=== PATIENT | female | born 1955 | race Caucasian/White ===

== ENCOUNTER → 2021-07-19 | Outpatient (CLI) | payer OTHER, MEDICARE ==
[~2021-07-19] MED LIST: ATIVAN1 MG PO; MEDROL DOSEPAK4 MG PO; TENORMIN25 MG PO
== END | disposition home or self-care (01) ==
LOC: COVID19 15:03
PROVIDERS: ATTEND Podiatrist Foot & Ankle Surgery
DX: Z20.822 Contact with and (suspected) exposure to COVID-19 (principal)